=== PATIENT | male | born 2000 | race Caucasian/White ===

== ENCOUNTER 2024-01-23 23:53 | Emergency (ER) | payer OTHER ==
[~2024-01-23] VITALS: Ht 177.8 cm; Wt 88.0 kg
[2024-01-24] MEDS ORDERED: ACETAMINOPHEN ES 500 MG TABLET ONE (01:57)
[2024-01-24] MEDS ORDERED: IBUPROFEN 600 MG TABLET ONE (01:58)
[2024-01-24] MEDS: IBUPROFEN 600 MG TABLET PO ONE (02:15)
[2024-01-24] MEDS: ACETAMINOPHEN ES 500 MG TABLET PO ONE (02:15)
[2024-01-24 04:39] VITALS: BP 134/75; TEMP 98; O2SAT 93
== END 2024-01-24 04:39 | disposition home or self-care (01) ==
LOC: ER 23:58
DX: S05.12XA Contusion of eyeball and orbital tissues, left eye, initial encounter (principal); F19.10 Other psychoactive substance abuse, uncomplicated; F17.200 Nicotine dependence, unspecified, uncomplicated; Y04.0XXA Assault by unarmed brawl or fight, initial encounter; Y93.89 Activity, other specified; Y92.89 Other specified places as the place of occurrence of the external cause; Y99.8 Other external cause status
CPT/HCPCS: 70450-TC; 70486-TC